=== PATIENT | female | born 1960 | race Caucasian/White ===

== ENCOUNTER 2019-08-07 10:44 | Inpatient (IN) | payer OTHER ==
[~2019-08-07] VITALS: Ht 157.4 cm; Wt 53.2 kg
[2019-08-07] MEDS ORDERED: AMLODIPINE BESYL5 MG PO (11:53)
[2019-08-07] MEDS ORDERED: ATROPINE SULFATE2 M2 SL (11:56)
[2019-08-07] MEDS ORDERED: BREO ELLIPTA 21 EACH INH (11:57)
[2019-08-07] MEDS ORDERED: Ipratropium Brom3 ML INH (11:58)
[2019-08-07] MEDS ORDERED: LASIX80 MG PO (11:59)
[2019-08-07] MEDS ORDERED: LISINOPRIL20 MG PO (12:00)
[2019-08-07] MEDS ORDERED: MAGNESIUM400 M1 PO (12:00)
[2019-08-07] MEDS ORDERED: MELATONIN5 M7 PO (12:01)
[2019-08-07] MEDS ORDERED: Lopressor25 MG PO (12:02)
[2019-08-07] MEDS ORDERED: PALIPERIDONE ER9 MG PO (12:03)
[2019-08-07] MEDS ORDERED: ANTI-FUNGAL CR113 GM T (12:03)
[2019-08-07] MEDS ORDERED: PROTONIX TR40 M1 PO (12:04)
[2019-08-07] MEDS ORDERED: KLOR-CON M1010 ME1 PO (12:05)
[2019-08-07] MEDS ORDERED: PROAIR HFA8.5 GM INH (12:05)
[2019-08-07] MEDS ORDERED: B-1100 M1 PO (12:06)
[2019-08-07] MEDS ORDERED: RANITIDINE HCL150 M1 PO (12:07)
[2019-08-07] MEDS ORDERED: ZINC50 M3 PO (12:08)
[2019-08-07 13:41] VITALS: BP 98/70
[2019-08-07 13:47] VITALS: BP 98/70
[2019-08-07 14:23] LABS: BILIRUBIN NEGATIVE (NEGATIVE); BLOOD 3+ (NEGATIVE); CLARITY CLOUDY (CLEAR); COLOR YELLOW (YELLOW); GLUCOSE NEGATIVE (NEGATIVE); KETONE TRACE (NEGATIVE)
[2019-08-07 14:24] LABS: LEUKO ESTERASE NEGATIVE (NEGATIVE); NITRITE NEGATIVE (NEGATIVE); UROBILINOGEN 0.2 E.U./dl (0.2-1.0)
[2019-08-07 14:27] LABS: BACTERIA 4+; MUCOUS TRACE; RBC TNTC rbc/hpf (0-2)
[2019-08-07 14:28] LABS: HYALINE CAST 0-2
[2019-08-07 15:07] LABS: BASO # 0.1 10*3/uL (0.0-0.1); BASO % 0.5 % (0.0-1.0); EOS # 0.7 10*3/uL (0.0-0.4); EOS % 6.7 % (1.0-4.0); HEMATOCRIT 33.3 % (37.0-47.0); HEMOGLOBIN 10.4 g/dl (12.0-16.0); LYMPH # 1.5 10*3/uL (1.3-4.4); LYMPH % 13.5 % (27.0-41.0); MEAN CELL VOLUME 102.8 fl (81.0-99.0); MEAN CORPUSCULAR HGB 32.1 pg (27.0-31.0); MEAN CORPUSCULAR HGB CONC 31.2 g/dl (33.0-37.0); MEAN PLATELET VOLUME 10.7 fl (9.6-12.3); MONO # 0.8 10*3/uL (0.1-1.0); MONO % 7.5 % (3.0-9.0); NEUT # 7.5 10*3/uL (2.3-7.9); NEUT % 69.4 % (47.0-73.0); PLATELET COUNT AUTOMATED 369 10*3/uL (130-400); RED BLOOD COUNT 3.24 10*6/uL (4.10-5.10); RED CELL DISTRI WIDTH 13.9 % (0-14.5); WHITE BLOOD COUNT 10.8 10*3/uL (4.8-10.8)
[2019-08-07 15:22] LABS: ALBUMIN 3.1 gm/dl (3.1-4.5); CREATININE 1.91 mg/dL (0.55-1.02); POTASSIUM 4.7 mmol/L (3.5-5.1); TOTAL PROTEIN 7.5 gm/dL (6.4-8.2)
[2019-08-07 15:30] LABS: THYROID STIM HORMONE (HS) 2.83 uIU/ml (0.358-4.75)
[2019-08-07 20:00] VITALS: BP 110/60
[2019-08-08 07:30] LABS: CHOLESTEROL 188 mg/dL (<200); HDL CHOLESTEROL 41 mg/dl (40-60); LDL CHOLESTEROL 99 mg/dL (9-159); TRIGLYCERIDES 239 mg/dl (<150); VLDL CHOLESTEROL 48 mg/dL (6-40)
[2019-08-08 07:50] VITALS: BP 110/60
[2019-08-08 12:10] LABS: BILIRUBIN NEGATIVE (NEGATIVE); BLOOD TRACE-INTACT (NEGATIVE); CLARITY SL CLOUDY (CLEAR); COLOR YELLOW (YELLOW); GLUCOSE NEGATIVE (NEGATIVE); KETONE NEGATIVE (NEGATIVE); LEUKO ESTERASE NEGATIVE (NEGATIVE); NITRITE NEGATIVE (NEGATIVE); SPECIFIC GRAVITY 1.025 (1.005-1.030); UROBILINOGEN 0.2 E.U./dl (0.2-1.0)
[2019-08-08 12:21] LABS: BACTERIA 1+; EPITHELIAL CELLS 16-20; HYALINE CAST 31-40
[2019-08-08 19:45] VITALS: BP 109/70
[2019-08-09 07:48] VITALS: BP 133/69
[2019-08-09 19:56] VITALS: BP 126/60
[2019-08-10 08:00] VITALS: BP 107/61
[2019-08-10 19:41] VITALS: BP 115/61
[2019-08-11 08:00] VITALS: BP 120/66
[2019-08-11 20:00] VITALS: BP 106/78
[2019-08-12 08:00] VITALS: BP 118/78
[2019-08-12 19:48] VITALS: BP 121/76
[2019-08-13 07:56] VITALS: BP 120/60
[2019-08-13 20:00] VITALS: BP 142/66
[2019-08-14 07:31] VITALS: BP 111/69
[2019-08-14 08:30] VITALS: BP 100/64
[2019-08-14 20:00] VITALS: BP 115/70
[2019-08-15 08:00] VITALS: BP 118/72
[2019-08-15 09:55] LABS: BASO % 0.5 % (0.0-1.0); EOS # 0.6 10*3/uL (0.0-0.4); EOS % 9.9 % (1.0-4.0); HEMATOCRIT 31.6 % (37.0-47.0); HEMOGLOBIN 10.1 g/dl (12.0-16.0); LYMPH # 1.4 10*3/uL (1.3-4.4); LYMPH % 21.9 % (27.0-41.0); MEAN CELL VOLUME 99.4 fl (81.0-99.0); MEAN CORPUSCULAR HGB 31.8 pg (27.0-31.0); MEAN PLATELET VOLUME 10.8 fl (9.6-12.3); MONO # 0.7 10*3/uL (0.1-1.0); MONO % 10.4 % (3.0-9.0); NEUT # 3.5 10*3/uL (2.3-7.9); PLATELET COUNT AUTOMATED 297 10*3/uL (130-400); RED BLOOD COUNT 3.18 10*6/uL (4.10-5.10); RED CELL DISTRI WIDTH 13.5 % (0-14.5); WHITE BLOOD COUNT 6.4 10*3/uL (4.8-10.8)
[2019-08-15 10:15] LABS: CREATININE 2.5 mg/dL (0.55-1.02); POTASSIUM 4.8 mmol/L (3.5-5.1); TOTAL PROTEIN 6.9 gm/dL (6.4-8.2)
[2019-08-15 15:47] LABS: BILIRUBIN NEGATIVE (NEGATIVE); BLOOD NEGATIVE (NEGATIVE); CLARITY CLEAR (CLEAR); COLOR YELLOW (YELLOW); GLUCOSE NEGATIVE (NEGATIVE); KETONE NEGATIVE (NEGATIVE); SPECIFIC GRAVITY 1.005 (1.005-1.030); UROBILINOGEN 0.2 E.U./dl (0.2-1.0)
[2019-08-15 15:48] LABS: LEUKO ESTERASE NEGATIVE (NEGATIVE); NITRITE NEGATIVE (NEGATIVE)
[2019-08-15 15:54] LABS: BACTERIA TRACE; HYALINE CAST 0-2; RBC 0-2 rbc/hpf (0-2); WBC 0-2 wbc/hpf (0-5)
[2019-08-15 20:06] VITALS: BP 130/70
[2019-08-16 06:17] LABS: BASO % 0.4 % (0.0-1.0); EOS # 0.6 10*3/uL (0.0-0.4); EOS % 9.6 % (1.0-4.0); HEMATOCRIT 29.1 % (37.0-47.0); HEMOGLOBIN 9.2 g/dl (12.0-16.0); LYMPH # 1.8 10*3/uL (1.3-4.4); LYMPH % 26.4 % (27.0-41.0); MEAN CORPUSCULAR HGB 31.6 pg (27.0-31.0); MEAN CORPUSCULAR HGB CONC 31.6 g/dl (33.0-37.0); MEAN PLATELET VOLUME 10.8 fl (9.6-12.3); MONO # 0.6 10*3/uL (0.1-1.0); MONO % 9.4 % (3.0-9.0); NEUT # 3.5 10*3/uL (2.3-7.9); NEUT % 52.6 % (47.0-73.0); PLATELET COUNT AUTOMATED 272 10*3/uL (130-400); RED BLOOD COUNT 2.91 10*6/uL (4.10-5.10); RED CELL DISTRI WIDTH 13.5 % (0-14.5); WHITE BLOOD COUNT 6.7 10*3/uL (4.8-10.8)
[2019-08-16 06:26] LABS: CREATININE 1.66 mg/dL (0.55-1.02); POTASSIUM 4.4 mmol/L (3.5-5.1)
[2019-08-16 07:44] VITALS: BP 110/52
[2019-08-16 09:28] VITALS: BP 128/76
[2019-08-16 19:59] VITALS: BP 115/58
[2019-08-17 08:00] VITALS: BP 124/52
[2019-08-17 19:49] VITALS: BP 122/61
[2019-08-18 08:00] VITALS: BP 120/77
[2019-08-18 19:54] VITALS: BP 122/74
[2019-08-19 08:00] VITALS: BP 114/67
[2019-08-19 19:57] VITALS: BP 121/74
[2019-08-20 08:00] VITALS: BP 128/77
[2019-08-20 20:00] VITALS: BP 118/70
[2019-08-21 08:00] VITALS: BP 121/69
[2019-08-21 20:00] VITALS: BP 114/67
[2019-08-22 08:00] VITALS: BP 112/67
[2019-08-22 20:00] VITALS: BP 122/66
[2019-08-23 08:00] VITALS: BP 114/68
[2019-08-23 19:46] VITALS: BP 113/63
[2019-08-24 08:21] VITALS: BP 127/69
[2019-08-24 19:48] VITALS: BP 132/72
[2019-08-25 07:55] VITALS: BP 126/70
[2019-08-25 19:35] VITALS: BP 130/78
[2019-08-26 07:48] VITALS: BP 115/75
[2019-08-26] MEDS ORDERED: LASIX40 MG PO (10:30)
[2019-08-26] MEDS ORDERED: DIVALPROEX SOD500 MG PO (10:53)
[2019-08-26] MEDS ORDERED: DIVALPROEX SOD250 MG PO (10:53)
[2019-08-26] MEDS ORDERED: LACTULOSE20 GM/30 M PO (10:54)
[2019-08-26] MEDS ORDERED: ROZEREM8 MG PO (10:54)
[2019-08-26] MEDS ORDERED: LATU120T PO (10:54)
[2019-08-26] MEDS ORDERED: BENZTROPINE MESY1 MG PO (10:54)
== END 2019-08-26 15:15 | DRG 885 ==
LOC: 3N 10:44
PROVIDERS: Counselor Professional; Internal Medicine; ADMIT Psychiatry & Neurology Psychiatry
PROC: 0HBRXZZ Excision of Toe Nail, External Approach (ICD-10-PCS; principal; 2019-08-08)
DX: F25.9 Schizoaffective disorder, unspecified (principal); I50.22 Chronic systolic (congestive) heart failure; N17.9 Acute kidney failure, unspecified; F31.9 Bipolar disorder, unspecified; J44.9 Chronic obstructive pulmonary disease, unspecified; R26.2 Difficulty in walking, not elsewhere classified; F17.210 Nicotine dependence, cigarettes, uncomplicated; Z71.6 Tobacco abuse counseling; R73.9 Hyperglycemia, unspecified; D53.9 Nutritional anemia, unspecified; B35.1 Tinea unguium; R82.71 Bacteriuria; K21.9 Gastro-esophageal reflux disease without esophagitis; I10 Essential (primary) hypertension; F41.9 Anxiety disorder, unspecified; F10.21 Alcohol dependence, in remission; I25.10 Atherosclerotic heart disease of native coronary artery without angina pectoris; E78.5 Hyperlipidemia, unspecified; I11.0 Hypertensive heart disease with heart failure; Z83.3 Family history of diabetes mellitus; Z82.49 Family history of ischemic heart disease and other diseases of the circulatory system; Z80.9 Family history of malignant neoplasm, unspecified